=== PATIENT | female | born 2000 | race African-American/Black ===

== ENCOUNTER 2023-10-20 07:18 | Day surgery (SDC) | payer MEDICAID, SELFPAY ==
[2023-10-20] VITALS (14 sets, daily range): BP systolic 97–128; BP diastolic 37–71; PULSE 55–86; RESP 12–18; TEMP 36.2–36.8; O2SAT 97–99; BMI 24.6
--- NOTE | ~2023-10-20 | CT_ITS ---
EXAMINATION: CT ABDOMEN AND PELVIS WITHOUT CONTRAST CLINICAL INFORMATION: Right flank pain. Evaluate for a stone. COMPARISON: None available. TECHNIQUE: Multidetector volumetric imaging was performed from the superior aspect of the liver through the pubic symphysis. Sagittal and coronal reformatted images were obtained on the technologist's workstation. This CT examination was performed using dose optimization techniques as appropriate, variously including the following: *Automated exposure control *Adjustment of mA and/or kV according to patient size (this includes techniques or standardized protocols for targeted exams where dose is matched to indication/reason for exam; i.e. extremities or head) *Use of iterative reconstruction technique DLP: 331 mGy-cm FINDINGS: LUNG BASES: The visualized lung bases are unremarkable. LIVER, GALLBLADDER, AND BILIARY TREE: The liver is normal in size, shape, and attenuation. No focal hepatic lesion or biliary ductal dilatation is present. The gallbladder is unremarkable with no evidence of radiopaque gallstones, gallbladder wall thickening, or obvious pericholecystic inflammatory changes. PANCREAS: Unremarkable. SPLEEN: Unremarkable. ADRENAL GLANDS: Unremarkable. KIDNEYS AND URETERS: The kidneys are normal in size, shape, and attenuation. Right mid pole 0.2 cm stone located approximately 6.9 cm from the right posterior axillary line. Minimally prominent right ureter which could represent minimal hydroureter. No significant hydronephrosis. No ureteral stone. Left mid pole renal stone measuring 0.1 cm and located approximately 5.1 cm from the posterior axillary line. No additional renal or ureteral stone. No significant left-sided hydronephrosis or hydroureter. BLADDER: Unremarkable. GASTROINTESTINAL TRACT: No small or large bowel obstruction. Mild stool burden. No bowel wall thickening or inflammatory change. There is hyperdensity in the region of the appendiceal base measuring up to 1.0 cm which could represent an appendicolith. Along the inferior margin of the cecum in the expected region of the appendix, there is a lobulated, heterogeneous focus measuring up to 3.2 x 5.0 x 4.7 cm (AP by ML by CC) with a density of 40 Hounsfield units. Findings are concerning for acute appendicitis and associated phlegmonous change. No discrete appendiceal lumen identified. No peripherally enhancing fluid collection or abscess formation. PERITONEAL CAVITY: Small amount of pelvic free fluid. No organized fluid collection or abscess formation. No large soft tissue mass. ABDOMINAL WALL: No significant hernia is appreciated. LYMPH NODES: No significant lymphadenopathy. VASCULAR: Unremarkable. PELVIC VISCERA: The uterus and adnexa are unremarkable. OSSEOUS STRUCTURES: Focal sclerosis adjacent to the left sacroiliac joint and more mildly adjacent to the right sacroiliac joint which may represent sequela of degenerative or chronic inflammatory arthropathy. No additional osseous abnormality. CT/CT abdomen pelvis wo IV con IMPRESSION: 1. Findings concerning for acute appendicitis with a probable appendicolith at the base of the appendix and phlegmonous change along the inferior margin of the cecum. No discrete appendiceal lumen identified. No peripherally enhancing fluid collection or abscess formation. 2. Small amount of pelvic free fluid. No organized fluid collection or abscess formation. 3. Bilateral renal stones measuring 0.2 cm on the right and 0.1 cm on the left. Minimal prominence of the right ureter without significant hydronephrosis or hydroureter. No ureteral stone. No urinary bladder stone or inflammatory change. 4. Focal sclerosis adjacent to the left sacroiliac joint and more mild adjacent to the right sacroiliac joint which may represent sequela of degenerative or chronic inflammatory arthropathy. Fleischner guidelines were followed.
--- NOTE | 2023-10-20 09:07 | ED.ABDPAIN ---
HPI - Abdominal Pain General Chief Complaint: Abdominal Pain Stated Complaint: kidney stones? Time Seen by Provider: 10/20/23 08:45 Source: patient Mode of arrival: ambulatory Limitations: no limitations History of Present Illness HPI narrative: 23 year old female with pmhx significant for nephrolithiasis presents to the ED today for evaluation of right flank pain beginning last night. She was recently seen at an ED in [place] on 10/15, diagnosed with left UVJ stone which she reports passing. Symptoms resolved until yesterday. She now reports the same discomfort to her right back with radiation to her right abdomen and groin. Denies fever/chills, nausea or vomiting, dysuria, hematuria, vaginal discharge. Endorses regular caffeine consumpion. Denies chance of . LMP 20 days ago. Reports 10 mo ago. No other abdominal surgeries. Related Data Allergies Allergy/AdvReac Type Severity Reaction Status Date / Time No Known Allergies Allergy Verified 10/20/23 10:48 Review of Systems Review of Systems Constitutional: No fever, chills, fatigue, night sweats, weight changes ENT/Mouth: No ear pain, hearing loss, nasal congestion, sinus pain, rhinorrhea, sore throat Eyes: No eye pain, swelling, redness, vision changes, discharge Cardio: No chest pain, palpitations, FORBES, orthopnea, peripheral edema Pulm: No SOB, cough, sputum, wheezing, dyspnea, hemoptysis GI: No nausea, vomiting, hematemesis, +abdominal pain, No diarrhea, constipation, hematochezia, melena : No irregular bleeding, dysuria, frequency, urgency, hesitancy, hematuria, flank pain, urinary flow changes, urinary incontinence or retention MSK: No back pain, neck pain, joint pain, myalgias Skin: No lesions, rashes Neuro: No weakness, numbness, paresthesias, LOC, dizziness, headache All other systems reviewed and are negative. [facility] Past Medical History Attestation statement: The following information was validated with the patient. Source: old records reviewed and nursing notes reviewed Social History Social History Advance Directives: No Advance Directives Information Provided: Yes Physical Exam ED Vital Signs: Vital Signs - 24 hr 10/20/23 07:21 10/20/23 09:48 10/20/23 11:33 Temperature 97.3 F 98.2 F 97.7 F Pulse Rate 86 55 63 Respiratory Rate 18 12 18 Blood Pressure 118/62 99/50 L 97/51 L Pulse Oximetry 98 99 99 Oxygen Delivery Method Room Air Room Air Room Air BMI result Body Mass Index 24.6 Vital signs wnl. Const General: cooperative, healthy appearing, comfortable, no acute distress, alert and awake Orientation/consciousness: patient oriented x3 Limitations: no limitations Eyes General: appearance normal, both eyes and all related structures Conjunctivae: conjunctivae normal Sclerae: sclerae normal Pupils: Equal, round and reactive pupils present Neck Neck: Yes normal visual inspection and Yes no lymphadenopathy Resp Effort & Inspection: normal respiratory effort and able to speak in complete sentences Auscultation: clear to auscultation bilaterally Cardio Jugular venous distension: no JVD Rate: regular rate Rhythm: regular rhythm Peripheral pulses: radial pulses present GI Other: + abdomen soft, nondistended, tender to palpation of the right lower quadrant with guarding, no rebound tenderness, normoactive bowel sounds x4. + right CVAT Inspection: Yes normal to inspection Palpation (GI): no hepatosplenomegaly Skin General skin exam: no rashes or lesions noted Neuro General: patient oriented x3, gait normal and moves all extremities Cranial nerves: Yes Equal, round and reactive pupils present Extrem General: Yes normal to inspection Course Course Course Narrative: 300-- CBC without leukocytosis. Hemoglobin of 10.6 and hematocrit of 30.9 she does not complain of vaginal bleeding, rectal bleeding or hematemesis. No acute electrolyte abnormalities requiring intervention. Urine is negative for infection or blood > acute renal stone less likely. >> CT abdomen and pelvis concerning for acute appendicitis with appenicolith and phlegmon. Will reach out to General surgery to discuss intervention. [id number]-- Discussed case and workup results with Dr. Schmidt who will take patient to OR this afternooon. Discussed work up results and plan with patient who verbalizes understanding and is in agreement. > will start patient on zosyn Medical Decision Making Medical Decision Making MDM Narrative: 23 year old female with pmhx significant for nephrolithiasis presents to the ED today for evaluation of right flank pain beginning last night. Vital signs WNL. Patient is nontoxic appearing and in no acute distress. On exam, abdomen is soft, nondistended, tender to palpation of the right lower quadrant with guarding, no rebound tenderness. Normoactive bowel sounds x4. Positive right CVAT. Bladder not palpable. Clinical concern for urinary tract infection, nephrolithiasis, hydronephrosis. Unlikely STD, PID, pyelonephritis, appendicitis, SBO, ischemic bowel, diverticulosis, diverticulitis, ovarian torsion, ovarian cyst/rupture, IUP, ectopic Plan for labs, UA, CT abdomen/pelvis, fluids, and re-evaluation. Differential Diagnosis Differential Diagnoses: The differential diagnosis associated with the presentation includes as above. Admission/Observation Consideration of admission/observation: Escalation of care including admission/observation considered In this patient with known renal stones and acute onset right flank pain, admission was considered. Consult Healthcare Provider Management of the patient was discussed with: Sat Instructor (General surgeon, Dr. Schmidt) Lab Data MDM Lab Attestation statement: I reviewed the patient's lab results. as above. 10/20/23 09:40 10/20/23 09:40 Labs: Lab Results 10/20/23 10/20/23 Range/Units 09:40 13:43 WBC 7.7 (4.8-10.8) X10*3/uL RBC 3.38 L (4.20-5.50) X10*6/uL Hgb 10.6 L (12.0-16.0) g/dl Hct 30.9 L (37.0-47.0) % MCV 91.4 (80.0-98.0) fL MCH 31.4 (27.0-33.0) pg MCHC 34.3 (31.0-35.0) g/dl RDW 12.9 (11.0-16.0) % Plt Count 288 (160-400) X10*3/uL MPV 10.4 (9.4-12.3) fL Immature Gran % (Auto) 0.1 (0.0-0.4) % Neut % (Auto) 53.2 (45-73) % Lymph % (Auto) 36.7 (20-40) % [place] % (Auto) 7.4 (2-11) % Eos % (Auto) 2.2 (0-4) % Baso % (Auto) 0.4 (0-2) % Lymph # (Auto) 2.8 (1.2-4.9) X10*3/uL [place] # (Auto) 0.6 (0.1-1.2) X10*3/uL Eos # (Auto) 0.2 (0.0-0.4) X10*3/uL Baso # (Auto) 0.0 (0.0-0.2) X10*3/uL Abs Immat Gran (auto) 0.01 (0.00-0.03) X10*3/uL Absolute Neuts (auto) 4.1 (2.0-8.3) x10*3/uL Absolute Nucleated RBC 0.000 (0.0-0.012) X10*3/uL Nucleated RBC % (auto) 0.0 (0.0-0.2) /100WBC Sodium 139 (135-145) mmol/L Potassium 3.8 (3.3-5.1) mmol/L Chloride 107 (96-108) mmol/L Carbon Dioxide 25 (22-29) mmol/L Anion Gap 11 L (12-20) BUN 8 L (9-16) mg/dL Creatinine 0.77 (0.5-1.4) mg/dL Estim Creat Clear Calc 99.4 Estimated GFR > 60 Random Glucose 89 (60-115) mg/dL Lactic Acid 0.7 (0.5-2.0) mmol/L Calcium 8.7 (8.4-10.2) mg/dL Magnesium 2.0 (1.6-2.6) mg/dL Lipase 25 (8-78) U/L Urine Color Yellow Urine Appearance Clear Urine pH 6.0 (5.0-9.0) Ur Specific [place] 1.010 (1.005-1.025) Urine Protein Negative (Neg-Trace) mg/dL Urine Glucose (UA) Negative (Negative) mg/dL Urine Ketones Negative (Negative) mg/dL Urine Blood Negative (Negative) Urine Nitrite Negative (Negative) Ur Leukocyte Esterase Negative (Negative) Urine Test NEGATIVE (NEGATIVE) Independent Interpretation I performed an independent interpretation of an: CT Scan Interpretation: I personally interpreted ct abd/pelvis and agree with radiologist's interpretation. Radiology Impression Discussion of test interpretation with radiology: I have reviewed the radiologist's reading. Radiologist Impression: CT abdomen pelvis wo IV con IMPRESSION: 1. Findings concerning for acute appendicitis with a probable appendicolith at the base of the appendix and phlegmonous change along the inferior margin of the cecum. No discrete appendiceal lumen identified. No peripherally enhancing fluid collection or abscess formation. 2. Small amount of pelvic free fluid. No organized fluid collection or abscess formation. 3. Bilateral renal stones measuring 0.2 cm on the right and 0.1 cm on the left. Minimal prominence of the right ureter without significant hydronephrosis or hydroureter. No ureteral stone. No urinary bladder stone or inflammatory change. 4. Focal sclerosis adjacent to the left sacroiliac joint and more mild adjacent to the right sacroiliac joint which may represent sequela of degenerative or chronic inflammatory arthropathy. Fleischner guidelines were followed. External Record Review External record reviewed: Inpatient record Prescription Management I considered prescription management with: Pain Medication and Antibiotic Social Determinants Patient?s care significantly limited by Social Determinants of Health including: Other Social Determinant of Health Medications Administered Discontinued Medications Generic Name Dose Route Start Last Admin Trade Name Freq PRN Reason Stop Dose Admin Acetaminophen 650 mg 10/20/23 09:18 10/20/23 09:25 Acetaminophen 325 Mg Tablet PO 10/20/23 09:19 650 mg ONCE ONE Administration Sodium Chloride 1,000 mls @ 999 mls/hr 10/20/23 09:15 10/20/23 10:55 Ns IV 10/20/23 10:15 Infused .Q1H1M JONNY Infusion Piperacillin Sod/Tazobactam 50 mls @ 100 mls/hr 10/20/23 13:31 10/20/23 15:07 Sod 3.375 gm/ Sodium Chloride IV 10/20/23 14:00 Infused ONCE ONE Infusion Critical Care Time Critical Care Time Critical Care Time: Yes Total Critical Care Time: 60 Attestation: Critical care time in the amount of 60 minutes has been provided to the patient in terms of direct patient care, frequent reevaluation, consultation with General surgery, review and interpretation of medical data and results, and management of potentially life-threatening conditions. This is all outside of any medical procedures. Discharge Plan Discharge Clinical Impression: Acute appendicitis Patient Disposition: Still a Patient Referrals: Yoan Schmidt MD [Physician] - Physician,Betsy J [Primary Care Provider] -
[2023-10-20] MEDS: Acetaminophen 325 MG TABLET 650 MG PO (09:25)
[2023-10-20] MEDS: 0.9 % Sodium Chloride 1,000 ML 999 ML IV (09:42)
[2023-10-20 09:54] LABS: MANUAL DIFF FLAG NO
[2023-10-20 09:55] LABS: Basophils Percent Auto 0.4 % (0-2); Eosinophils Absolute Auto 0.2 X10*3/uL (0.0-0.4); Eosinophils Percent Auto 2.2 % (0-4); Hematocrit 30.9 % (37.0-47.0); Hemoglobin 10.6 g/dl (12.0-16.0); Imm Gran Abs Auto 0.01 X10*3/uL (0.00-0.03); Imm Gran Pct Auto 0.1 % (0.0-0.4); Lymphocytes Absolute Auto 2.8 X10*3/uL (1.2-4.9); Lymphocytes Percent Auto 36.7 % (20-40); Mean Corpuscular HGB Conc 34.3 g/dl (31.0-35.0); Mean Corpuscular Hemoglobin 31.4 pg (27.0-33.0); Mean Corpuscular Volume 91.4 fL (80.0-98.0); Mean Platelet Volume 10.4 fL (9.4-12.3); Monocytes Absolute Auto 0.6 X10*3/uL (0.1-1.2); Monocytes Percent Auto 7.4 % (2-11); Neutrophils Absolute Auto 4.1 x10*3/uL (2.0-8.3); Neutrophils Percent Auto 53.2 % (45-73); Platelet Count 288 X10*3/uL (160-400); Red Blood Count 3.38 X10*6/uL (4.20-5.50); Red Cell Distribution Width 12.9 % (11.0-16.0); White Blood Count 7.7 X10*3/uL (4.8-10.8)
[2023-10-20 09:58] LABS: Appearance Urine Clear; Color Urine Yellow; Glucose Urine UA Negative (Negative); Leukocyte Esterase Urine Negative (Negative); Nitrite Urine Negative (Negative); Urine Blood Negative (Negative); Urine Ketones Negative (Negative); Urine Protein Negative (Neg-Trace)
[2023-10-20 10:05] LABS: UPreg QC Valid YES; Urine Pregnancy NEGATIVE (NEGATIVE)
[2023-10-20 10:12] LABS: Anion Gap 11 (12-20); Blood Urea Nitrogen 8 mg/dL (9-16); Calcium 8.7 mg/dL (8.4-10.2); Carbon Dioxide 25 mmol/L (22-29); Chloride 107 mmol/L (96-108); Creatinine Clr Calc Pharmacy 99.4; Estimated Glomerular Filt Rate > 60; Glucose Random 89 mg/dL (60-115); Lipase 25 U/L (8-78); Potassium 3.8 mmol/L (3.3-5.1); Sodium 139 mmol/L (135-145)
--- NOTE | 2023-10-20 11:35 | PC.NURSE ---
20g iv inserted rac, pt tolerated well. po med and iv fluid given as documented.
[2023-10-20 14:00] LABS: Lactic Acid 0.7 mmol/L (0.5-2.0)
[2023-10-20] MEDS: Piperacillin Sodium/Tazobactam 3.375 GM in 0.9 % Sodium Chloride 50 ML IV (14:09)
--- NOTE | 2023-10-20 15:00 | PC.NURSE ---
LATE ENTRY: PT TAKEN TO OR DR. PATEL ASSISTED BY CLINICAL STAFF PHARMACIST. REPORT GIVEN TO OR NURSE.
--- NOTE | 2023-10-20 15:12 | P.HPGS_ITS ---
History of Present Illness History of Present Illness Date of Service: 10/20/23 Chief complaint: kidney stones? Narrative: Steven Del Castillo is a 23 year old female with a recent history of left-sided kidney stones are now presents with approximate 1 day history of progressively worsening right-sided abdominal pain. Because of progression of symptoms, she presents for further evaluation. She denies any other GI issues or complaints. She has not had any sick contacts. She does not recall any unusual diet. As noted, patient was in [place] recently and had passed a left kidney stone. Chart was reviewed and patient evaluated. Past surgical history noteworthy for section approximately 8 months ago. [facility] Social History Social History Advance Directives: No Advance Directives Information Provided: Yes Meds Allergies Allergy/AdvReac Type Severity Reaction Status Date / Time No Known Allergies Allergy Verified 10/20/23 10:48 Physical Exam Vital Signs: Vital Signs: Last Vital Signs Temp 97.7 F 10/20/23 11:33 Pulse 63 10/20/23 11:33 Resp 18 10/20/23 11:33 BP 97/51 L 10/20/23 11:33 Pulse Ox 99 10/20/23 11:33 O2 Del Method Room Air 10/20/23 11:33 BMI result Body Mass Index 24.6 Chest: Other: Chest breath sounds bilaterally, HS 1 in 2 GI: Other: Abdomen mildly corpulent, marked right lower quadrant localized rebound tenderness. Remainder of abdomen benign Results Results Labs: Short CBC 10/20/23 Range/Units 09:40 WBC 7.7 (4.8-10.8) X10*3/uL Hgb 10.6 L (12.0-16.0) g/dl Hct 30.9 L (37.0-47.0) % Plt Count 288 (160-400) X10*3/uL BMP 10/20/23 09:40 Sodium 139 Potassium 3.8 Chloride 107 Carbon Dioxide 25 BUN 8 L Creatinine 0.77 Calcium 8.7 Urine 10/20/23 Range/Units 09:40 Urine Color Yellow Urine Appearance Clear Urine pH 6.0 (5.0-9.0) Ur Specific [place] 1.010 (1.005-1.025) Urine Protein Negative (Neg-Trace) mg/dL Urine Glucose (UA) Negative (Negative) mg/dL Urine Test NEGATIVE (NEGATIVE) Assessment and Plan (1) Acute appendicitis: Status: Acute Plan Risks, benefits, and alternatives laparoscopic possible open appendectomy were reviewed with the patient and included but not limited to bleeding, infection, numbness, pain, scarring, bowel or bladder injury or leak and the patient wished to proceed. All questions answered. Arrangements were made for this for this afternoon. Quality Stroke Does the patient have a stroke diagnosis?: No VTE Prior VTE?: No VTE Risk Level:: Surgical - low VTE Device Contraindication: Treatment Not Indicated VTE Drug Contraindication: Treatment Not Indicated Procedures Date of Service Date of Service: 10/20/23
[2023-10-20] MEDS: fentaNYL citrate/PF 100 MCG/2 ML VIAL 25 MCG IVPUSH ×3 (16:55→17:15)
[2023-10-20] MEDS: oxyCODONE HCl Immed Release 5 MG TABLET PO (16:55)
[2023-10-20] MEDS: Acetaminophen 1,000 MG/100 ML PIGGYBACK 400 MG IV (16:55)
--- NOTE | 2023-10-20 17:00 | P.OP_ITS ---
Operative Note Operative Note Date of Service: 10/20/23 Narrative: Preoperative diagnosis: [] early acute appendicitis Postop diagnosis: [] Same Procedure [] laparoscopic appendectomy Surgeon: [] Brayan [employer] Structural Designer: [] Type of Anesthesia: [] General Indication for surgery: [] Edematous injected appendix. No other gross intra- abdominal pathology demonstrated. No evidence of perforation. Patient is status post relatively recent section. Findings: [] Patient was brought to the operating room, placed on operative table in supine position, after an adequate level of general anesthesia was induced, the patient's abdomen was prepped and draped in usual sterile fashion. Using a supraumbilical curvilinear incision, Sorensen technique was used to insufflate the abdominal cavity to 15 mm of CO2. Lower midline suprapubic ports were placed under direct laparoscopic view, the patient placed in Trendelenburg position, and tilted to the left. Findings were as noted above. Terminal ileum was within normal limits. Appendix was grasped and brought onto the field. Its mesentery sequentially taken down with double firing of ligature device. Appendix was then transected at the cecal base using endoscopic MUKUND stapler. Specimen was placed in an Endo- Catch bag, a retrieved through the umbilical port. The abdominal cavity was copiously irrigated, and secured hemostasis. All ports were removed under direct laparoscopic view. Wounds were closed in the following manner; umbilical wound is fascia reapproximated using interrupted 0 Vicryl sutures. Skin wounds were closed using subcuticular 4-0 Vicryl sutures followed by Steri-Strips and sterile dressings. Wounds were infiltrated 0.5% Marcaine at completion. Sponge, needle, and instrument counts reported correct. Patient tolerated the procedure well and emerged from anesthesia stable condition. EBL minimal
--- NOTE | 2023-10-20 18:38 | PHA.MEDREC ---
Addendum entered by Nolan Wiggins 10/21/23 09:17: Pt departed. Original Note: Pharmacy Consult ? Medication Reconciliation Pharmacy has completed the medication reconciliation. Unable to perform med rec as patient in surgery. Will follow up tomorrow AM.
--- NOTE | 2023-10-22 11:41 | HO.POSTANES ---
Post Anesthesia Evaluation Post Anesthesia Evaluation Date of Service: 11/20/23 Anesthesia: General Endotracheal-GETA Mental Status: Awake Pain Control: Satisfactory Nausea/Vomiting: None Hydration: Adequate Anesthesia-Related Issues: No Anes. Related Issues
== END 2023-10-21 08:27 | disposition admitted as inpatient to this hospital (09) ==
LOC: HO.ED 10-21 07:30 → HO.SSS 10-21 08:27
PROVIDERS: Surgery; Emergency Provider Emergency Medicine; Visit Provider Physician Assistant Medical
PROC: 0DTJ4ZZ Resection of Appendix, Percutaneous Endoscopic Approach (ICD-10-PCS; CPT 44970; principal; 2023-10-20 15:00)
DX: K35.80 Unspecified acute appendicitis (principal)
CPT/HCPCS: 44970; 36415; 74176; 80048; 81003; 81025; 83605; 83690; 83735; 85025; 87040; 88304; 96361; 96365; 99284; 99285; J0131; J1100; J2250; J2405; J2543; J2704; J2795; J3010

== ENCOUNTER → 2023-10-20 08:56 | Outpatient (BNV) | payer MEDICAID, SELFPAY | PROVIDERS: Emergency Provider Emergency Medicine; Visit Provider Surgery | DX: K35.80 Unspecified acute appendicitis (principal) | CPT/HCPCS: 44970; 99284 ==

== ENCOUNTER 2023-10-24 14:05 | Outpatient (AMB) | payer MEDICAID, SELFPAY ==
--- NOTE | 2023-10-24 14:29 | MHC.OFFVIS ---
Intake Vital Signs 10/24/23 14:30 Weight 134 lb BP 110/53 L Blood Pressure Location Rt brachial Position Sitting Pulse 62 Intake Visit Reasons: s/p laparoscopic appendectomy Intake Note: Patient here s/p lap appendectomy on 10-20-23. Reports incision healing well. Denies bleeding, itch. Patient c/o: incision on lower abd feels tender to touch. Fiscal Agent Required: No Accompanied by: Self / Same As Patient Allergies No Known Allergies Allergy (Verified 10/24/23 14:31) HPI HPI Comments History of Present Illness Details Status post appendectomy. Mild incisional discomfort but otherwise doing well. Tolerating her diet. Having normal bowel habits. Increasing her activity level. Pathology still pending Physical Exam Vital Signs: Last Vital Signs Pulse 62 10/24/23 14:30 BP 110/53 L 10/24/23 14:30 GI Other: Abdomen soft. All wounds clean dry and intact. Assessment & Plan Assessment & Plan (1) Status post appendectomy, follow-up exam: Code(s): Z09 - Encounter for follow-up examination after completed treatment for conditions other than malignant neoplasm Plan Patient has been given local instructions, and will follow-up p.r.n.. Should her bowel of allergy have something of interest, she will be contacted . Otherwise she will follow-up p.r.n.. Coding Level of Care Code Global (84899) Diagnoses Status post appendectomy, follow-up exam Z09
[2023-10-24 14:30] VITALS: BP 110/53; PULSE 62
== END 2023-10-24 14:39 | disposition home or self-care (01) ==
PROVIDERS: Visit Provider Surgery
DX: Z09 Encounter for follow-up examination after completed treatment for conditions other than malignant neoplasm (principal)
CPT/HCPCS: 99024

== ENCOUNTER → 2023-10-24 14:05 | Outpatient (BNVA) | payer MEDICAID, SELFPAY | PROVIDERS: Visit Provider Surgery | DX: Z09 Encounter for follow-up examination after completed treatment for conditions other than malignant neoplasm (principal); Z98.890 Other specified postprocedural states | CPT/HCPCS: 99212 ==

== ENCOUNTER 2023-10-31 16:39 | Emergency (ER) | payer OTHER, SELFPAY ==
[2023-10-31 16:53] VITALS: BP 131/72; PULSE 83; RESP 18; TEMP 37.1; O2SAT 98; BMI 23.9
--- NOTE | 2023-10-31 16:54 | ED.URI ---
HPI - URI/Sore Throat General Chief Complaint: Fever Stated Complaint: flu like symptoms Time Seen by Provider: 10/31/23 17:47 Source: patient, RN notes reviewed and old records reviewed Mode of arrival: ambulatory History of Present Illness HPI Narrative: 23-year-old female with no significant past medical history presenting to the ED complaining of rhinorrhea, congestion, chills, dry cough, subjective fever x few days. Admits to sick contacts. Denies chest pain/shortness of breath, sore throat, recent travel Related Data Home Medications Medication Instructions Recorded Confirmed No Known Home Meds 10/24/23 10/24/23 Allergies Allergy/AdvReac Type Severity Reaction Status Date / Time No Known Allergies Allergy Verified 10/24/23 14:31 Review of Systems Review of Systems: Constitutional: + Fever, No Chills ENT/Mouth: No Ear Pain, + Nasal Congestion, No Sinus Pain, No Hoarseness, + sore throat, + Rhinorrhea, No Swallowing Difficulty Cardiovascular: No Chest Pain, No SOB Respiratory: + Cough, No Sputum, No Wheezing Gastrointestinal: + Nausea, No Vomiting, + Diarrhea, No Constipation, No Abdominal pain Musculoskeletal: No joint pain, No Myalgias, No Joint Swelling Skin: No Skin Lesions, No rash Neuro: No Weakness Yes all other systems are reviewed and are negative Constitutional: Constitutional: Reports as per [facility] Past Medical History Attestation statement: The following information was validated with the patient. Source: old records reviewed Onset Date is defined in the Problem List Problems that require an onset date and time if occurred within 24 hrs of arrival to the ED Aortic Dissection and Rupture; Neurologic impairment; Cardiopulmonary Arrest; Endotracheal Intubation; Insertion or Replacement of Mechanical Circulatory Assist Device Social History Social History Advance Directives: No Advance Directives Information Provided: No Physical Exam Vital Signs: Vital Signs: Last Vital Signs Temp 98.8 F 10/31/23 16:53 Pulse 83 10/31/23 16:53 Resp 18 10/31/23 16:53 BP 131/72 10/31/23 16:53 Pulse Ox 98 10/31/23 16:53 O2 Del Method Room Air 10/31/23 16:53 BMI result Body Mass Index 23.9 Const: General: cooperative, healthy appearing and no acute distress Orientation/consciousness: patient oriented x3 Limitations: no limitations HEENT: Head: Yes normal to inspection and Yes atraumatic Ears: hearing grossly normal bilaterally General nose exam: Normal external nose present Face and sinus: Yes normal facial exam Eyes: General: appearance normal, both eyes and all related structures EOM: EOMs intact bilaterally Neck: Neck: Yes normal visual inspection and Yes no meningeal signs Resp: Effort & Inspection: normal respiratory effort and no respiratory distress Auscultation: clear to auscultation bilaterally, no crackles, no rales, no rhonchi and no wheezes Cardio: Rate: regular rate Heart sounds: S1 normal heart sound present and S2 normal heart sound present Skin: Rashes: no rashes Wounds: no wounds Neuro: General: patient oriented x3, tone normal and no meningeal signs Cranial nerves: Yes CN's II-XII intact bilaterally Gait exam (Neuro): Normal gait present Extrem: General: Yes normal to inspection Course Course Course Narrative: RME: 23 year-old F w/no sig PMHx presenting to the ED c/o congestion, chills, cough, & fever x few days. denies sore throat, SOB Viral testing ordered Full HPI, ROS and PE to be performed by primary ED provider. -influenza B positive. Offered Tamiflu and discussed risk versus benefit > patient deferred Results discussed with patient including worrisome signs and symptoms and strict return precautions, and when to return to the emergency department. They verbalized understanding and feel safe for discharge at this time. Medical Decision Making Medical Decision Making [facility] Narrative: 23-year-old female with no significant past medical history presenting to the ED complaining of rhinorrhea, congestion, chills, dry cough, subjective fever x few days. On exam vital signs stable, NAD, nontoxic appearing, lungs CTA, exam otherwise nonfocal. Concern for viral illness. Lower suspicion for ACS, pneumonia, bronchitis Plan: Viral testing Please refer to course for remaining clinical decision making, interpretation of labs/imaging results, and discussions with consultants and/or family members. Differential Diagnosis Differential Diagnoses: The differential diagnosis associated with the presentation includes As above Lab Data [facility] Lab Attestation statement: I reviewed the patient's lab results. Labs: Lab Results 10/31/23 Range/Units 16:59 COVID-19 (JAMIE) Negative (Negative) COVID-19 Clin Com See Note Influenza Type A (NAHID) Negative (Negative) Influenza Type B (NAHID) Positive A (Negative) Influenza A & B Note See Note External Record Review External record reviewed: Inpatient record, Office record, Outpatient record, Prior outpatient labs, Prior outpatient radiology, Primary care record and Outside ED record Tests considered The following testing was considered but not selected: As above Prescription Management I considered prescription management with: Pain Medication, Antiviral and Antibiotic Discharge Plan Discharge Clinical Impression: Influenza Patient Disposition: Home, Self-Care Instructions: Influenza (DC) Additional Instructions: You have the flu No antibiotics are indicated at this time Make sure you are staying hydrated. Drink plenty of fluids. Rest Alternate Tylenol and Motrin at home as needed for body aches and fever Follow-up with your doctor. If symptoms persist or worsen return to the emergency department *If you are a child & not tolerating liquid or urinating for more than 6 hours, or fevers are uncontrolled with medications at home, return to the emergency department* Prescriptions: No Action No Known Home Meds Referrals: Physician,Unknown J [Primary Care Provider] - 3 days Stand Alone Forms: Work/School Release
[2023-10-31 17:21] LABS: COVID-19 Test Negative (Negative); IDNOW Serial# 08D9AD1C
[2023-10-31 17:23] LABS: IDNOW Serial# 6674DD1D; Influenza A Negative (Negative); Influenza B2 Positive (Negative)
== END 2023-10-31 17:58 | disposition home or self-care (01) ==
PROVIDERS: Physician Assistant; Emergency Provider Student in an Organized Health Care Education/Training Program
DX: J10.1 Influenza due to other identified influenza virus with other respiratory manifestations (principal); Z11.52 Encounter for screening for COVID-19
CPT/HCPCS: 87502; 87635; 99282; 99283

== ENCOUNTER 2024-01-18 17:57 | Emergency (ER) | payer OTHER, SELFPAY ==
[2024-01-18 18:14] VITALS: BP 122/66; PULSE 106; RESP 20; TEMP 36.6; O2SAT 99; BMI 24.7
--- NOTE | 2024-01-18 18:14 | ED.NAVMDI ---
HPI - Nausea/Vomiting/Diarrhea General Chief complaint: Nausea/Vomiting/Diarrhea Stated complaint: Diarrhea Time Seen by Provider: 01/18/24 20:01 Source: patient Mode of arrival: ambulatory Limitations: no limitations History of Present Illness HPI Narrative: 23-year-old female with no significant past medical history who presents emergency department for evaluation of nausea, vomiting, diarrhea and fatigue. Patient states that her symptoms started last night at around 17:00 hours. She states that she had some mild abdominal discomfort, felt very fatigued and then she developed persistent vomiting all night with 2 episodes of loose diarrheal stool. She denied fever, chills, rhinorrhea, sore throat, cough, chest pain, shortness of breath. Patient is concerned that she may have food poisoning secondary to a buffalo chicken cream cheese dip or that she may have caught something from her work-the patient works as a INFRASTRUCTURE ARCHITECT. The patient's and 1-year-old son also have similar symptoms and her here in the emergency department as patient's as well. Related Data Previous Rx's Medication Instructions Recorded acetaminophen 500 mg tablet 1,000 mg (2 x 500 mg) PO Q6H PRN 01/18/24 (Tylenol Extra Strength) fever or pain #20 tabs ibuprofen 400 mg tablet 400 mg PO TID PRN fever or pain 01/18/24 #30 tabs loperamide 2 mg tablet (Imodium 2 mg PO Q4H PRN loose stool #20 01/18/24 A-D) tabs ondansetron 4 mg disintegrating 4 mg PO Q6-8H PRN nausea and 01/18/24 tablet vomiting #14 tabs Allergies Allergy/AdvReac Type Severity Reaction Status Date / Time No Known Allergies Allergy Verified 01/18/24 18:16 Review of Systems Review of Systems: Yes all other systems are reviewed and are negative [facility] Past Medical History [facility] Narrative: Social history: She denies tobacco use she occasionally drinks alcohol she denies drug use Social History Social History Advance Directives: No Advance Directives Information Provided: No Physical Exam Vital Signs: Vital Signs: Last Vital Signs Temp 97.9 F 01/18/24 18:14 Pulse 106 H 01/18/24 18:14 Resp 20 01/18/24 18:14 BP 122/66 01/18/24 18:14 Pulse Ox 99 01/18/24 18:14 O2 Del Method Room Air 01/18/24 18:14 BMI result Body Mass Index 24.7 Vital signs were normal except for an elevated heart rate of 106 Exam: General: Awake, alert in no distress Head: Normocephalic, atraumatic EENT: PERRL, Lids normal, sclera normal, conjunctiva normal, nose normal , ears normal, throat without erythema or exudates Neck: Supple, no adenopathy Lung: breath sounds symmetric, no wheezing, rales or rhonchi Chest: symmetric movement, nontender Heart: regular rate and rhythm, normal S1, S2 no murmurs or rubs Abdomen: soft, non-tender, nondistended, normal bowel sounds Back: no vertebral tenderness, no CVAT Extremities: no deformities, moves all extremities symmetrically Neuro: Awake, alert, oriented, normal speech, cranial nerves intact, moves all extremities symmetrically Psych: Pleasant, cooperative Course Course Course Narrative: This is an RME: Additional HPI, ROS, PE not included below will be deferred to primary provider. Patient is a 23-year-old female who presents emergency department for evaluation of fatigue, nausea, vomiting, diarrhea. Symptoms develop soon after she ate buffalo chicken dip which she subsequently realized that there was mold in the blue cheese used in the recipe. Boyfriend is ill with similar symptoms. Additionally she reports that she took a test yesterday, there appeared to be a faded positive line, expressing concern for possible . denies urinary sx. 19:20 - child now ill will add viral panel Medications Administered Discontinued Medications Generic Name Dose Route Start Last Admin Trade Name Nikoq PRN Reason Stop Dose Admin Ondansetron HCl 4 mg 01/18/24 18:17 01/18/24 20:23 Ondansetron Odt 4 Mg Tab.Rapdis TRANSLINGU 01/18/24 18:18 4 mg ONCE ONE Administration Medical Decision Making Medical Decision Making [facility] Narrative: 23-year-old female with no significant past medical history who presents emergency department for evaluation of nausea, vomiting, diarrhea and fatigue x1 day. Patient had multiple episodes of vomiting with 2 episodes of loose diarrheal stool. Patient is concerned that she may have a viral infection that she called at work (she works as a INFRASTRUCTURE ARCHITECT) or she may have food poisoning secondary to a moldy [place] chicken she is sauce. Patient's and 1-year-old son here in the emergency department with similar symptoms. Vital signs did reveal an elevated heart rate. Examination was unremarkable Differential diagnosis: ?Includes but is not limited to viral syndrome, gastroenteritis, food poisoning, COVID-19, influenza, RSV, , urinary tract infection Following evaluation was ordered: COVID-19, RSV, influenza, urinalysis, test Patient was initially treated with the following: Zofran 4 mg ODT Course: 20:59 My interpretation patient's laboratory evaluation is as follows: Urinalysis positive for blood negative for leukocyte esterase and nitrates microscopic revealed greater than 20 WBCs and 2+ bacteria. RSV, influenza and COVID-19 were negative Given that the patient's in 1-year-old son have similar symptoms I do not think that the patient has food poisoning but most likely has a viral syndrome. Patient's nausea did improve with Zofran ODT. She was given prescriptions for Tylenol and ibuprofen for pain and fever. She was also given prescription for Imodium for diarrhea and Zofran ODT for nausea and vomiting Patient was given a work note, printed and verbal instructions and discharged home Admission/Observation Consideration of admission/observation: Escalation of care including admission/observation considered Lab Data [facility] Lab Attestation statement: I reviewed the patient's lab results. Labs: Lab Results 01/18/24 01/18/24 Range/Units 18:27 19:36 Urine Color Yellow Urine Appearance Cloudy Urine pH 5.5 (5.0-9.0) Ur Specific [place] 1.025 (1.005-1.025) Urine Protein Trace (Neg-Trace) mg/dL Urine Glucose (UA) Negative (Negative) mg/dL Urine Ketones 15 (Negative) mg/dL Urine Blood Moderate (2+) H (Negative) Urine Nitrite Negative (Negative) Ur Leukocyte Esterase Negative (Negative) Urine RBC 0-2 (0-2) /HPF Urine WBC 0-5 (0-5) /HPF Ur Squamous Epith Cells >20 (0-2) /HPF Urine Bacteria 2+ (None Seen) Hyaline Casts 0-2 (0-2) /LPF Urine Test NEGATIVE (NEGATIVE) Influenza Type A (PCR) NEGATIVE (Negative) Influenza Type B (PCR) NEGATIVE (Negative) RSV RNA Qual (PCR) NEGATIVE (Negative) SARS-CoV-2 RNA (RT-PCR) NEGATIVE (Negative) Independent Historian Clinical information obtained from an independent historian. History obtained from or confirmed by: Spouse Prescription Management I considered prescription management with: Pain Medication and Other (Antiemetics, antidiarrheal medications) Discharge Plan Discharge Clinical Impression: Viral syndrome Vomiting Qualifiers: Vomiting type: unspecified Nausea presence: with nausea Qualified Code(s): R11.2 - Nausea with vomiting, unspecified Diarrhea Qualifiers: Diarrhea type: unspecified type Qualified Code(s): R19.7 - Diarrhea, unspecified Patient Disposition: Home, Self-Care Instructions: Viral Syndrome (ED) Additional Instructions: Your COVID-19, influenza and RSV tests were negative Your urine test was negative. Your urinalysis was negative for infection as well. Your symptoms are consistent with a viral infection that is giving you vomiting and diarrhea. Take ibuprofen 200 mg pills, 2 pills every 6 hours as needed for pain or fever. Take Tylenol (acetaminophen) 500 mg pills, 2 pills every 6 hours as needed for pain or fever. Take Zofran ODT 4 mg pills, 1 pill dissolved in your mouth every 8 hours as needed for nausea and vomiting. For diarrhea I want you to take Imodium 2 mg pills. ?Take 2 pills after the 1st loose, diarrheal stool then 1 pill after each loose, diarrheal stool up to 8 pills per day. ?This usually stops diarrhea within 24 hours. Follow-up with your doctor in 2 days. Please return to the emergency department if your symptoms get worse or if you develop any symptoms that are concerning to you. Prescriptions: New loperamide [Imodium A-D] 2 mg tablet 2 mg PO Q4H PRN (Reason: loose stool) Qty: 20 0RF acetaminophen [Tylenol Extra Strength] 500 mg tablet 1,000 mg PO Q6H PRN (Reason: fever or pain) Qty: 20 0RF ibuprofen 400 mg tablet 400 mg PO TID PRN (Reason: fever or pain) Qty: 30 0RF ondansetron 4 mg tablet,disintegrating 4 mg PO Q6-8H PRN (Reason: nausea and vomiting) Qty: 14 0RF Stand Alone Forms: Work/School Release
[2024-01-18 18:42] LABS: Appearance Urine Cloudy; Color Urine Yellow; Glucose Urine UA Negative (Negative); Leukocyte Esterase Urine Negative (Negative); Nitrite Urine Negative (Negative); PH 5.5 (5.0-9.0); Specific Gravity - Urine 1.025 (1.005-1.025); UMIC TRIGGER UACC YES; Urine Blood Moderate (2+) (Negative); Urine Ketones 15 mg/dL (Negative); Urine Protein Trace mg/dL (Neg-Trace)
[2024-01-18 18:43] LABS: UPreg QC Valid YES; Urine Pregnancy NEGATIVE (NEGATIVE)
[2024-01-18 19:19] LABS: Bacteria Urine 2+ (None Seen); Hyaline Casts Urine 0-2 /LPF (0-2); RBC Urine 0-2 /HPF (0-2); Squamous Epithelial Cell Urine >20 /HPF (0-2); WBC Urine 0-5 /HPF (0-5)
[2024-01-18] MEDS: Ondansetron ODT 4 MG TAB.RAPDIS TRANSLINGU (20:23)
[2024-01-18 20:36] LABS: Influenza A PCR NEGATIVE (Negative); Influenza B PCR NEGATIVE (Negative); Resp Syncy Virus RNA Qual PCR NEGATIVE (Negative); SARS COV2 PCR INHOUSE NEGATIVE (Negative)
[2024-01-18 21:15] VITALS: BP 122/57; PULSE 85; RESP 18; TEMP 36.3; O2SAT 99
[2024-01-18 21:19] VITALS: BP 122/57; PULSE 85; RESP 18; TEMP 36.3; O2SAT 99
== END 2024-01-18 21:20 | disposition home or self-care (01) ==
PROVIDERS: Nurse Practitioner Family; Emergency Provider Emergency Medicine Emergency Medical Services
DX: B34.9 Viral infection, unspecified (principal); R11.2 Nausea with vomiting, unspecified; R19.7 Diarrhea, unspecified; R53.83 Other fatigue
CPT/HCPCS: 0241U; 81001; 81025; 99283

== ENCOUNTER 2024-02-06 00:13 | Emergency (ER) | payer OTHER, SELFPAY ==
--- NOTE | ~2024-02-06 | CT_ITS ---
EXAMINATION: CT ABDOMEN AND PELVIS WITHOUT CONTRAST CLINICAL INFORMATION: Right flank pain, question stone COMPARISON: 10/20/2023 TECHNIQUE: Multidetector volumetric imaging was performed from the superior aspect of the liver through the pubic symphysis. Sagittal and coronal reformatted images were obtained on the technologist's workstation. This CT examination was performed using dose optimization techniques as appropriate, variously including the following: *Automated exposure control *Adjustment of mA and/or kV according to patient size (this includes techniques or standardized protocols for targeted exams where dose is matched to indication/reason for exam; i.e. extremities or head) *Use of iterative reconstruction technique DLP: 317 mGy-cm FINDINGS: LUNG BASES: There is a stable 4 mm left lower lobe nodule on image 383/[id number] laterally, statistically likely benign in the absence of clinical risk factors. LIVER, GALLBLADDER, AND BILIARY TREE: The liver is normal in size, shape, and attenuation. No focal hepatic lesion or biliary ductal dilatation is identified on this noncontrast exam. The gallbladder is unremarkable. PANCREAS: Grossly unremarkable, suboptimally assessed without intravenous contrast. SPLEEN: Unremarkable. Splenule is suspected. ADRENAL GLANDS: Unremarkable. KIDNEYS AND URETERS: Right renal pelvis and much of the right ureter appear moderately dilated. There is a 4 mm calcification in the region of the right ureterovesicular junction which is suspicious for an obstructing calculus in this setting, though the distal most ureter is not well delineated. No appreciable left-sided hydronephrosis. Tiny left renal calculus noted. BLADDER: Minimally distended and suboptimally assessed. GASTROINTESTINAL TRACT: No evidence of bowel obstruction. Limited evaluation for wall thickening in some regions of the colon due to luminal collapse. Patient is suspected to be status post appendectomy. Questionable trace pelvic free fluid. No free air is seen. ABDOMINAL WALL: No significant hernia is appreciated. LYMPH NODES: Significantly limited evaluation due to lack of intra-abdominal fat and absence of intravenous contrast. VASCULAR: Grossly unremarkable, suboptimally assessed without intravenous contrast. PELVIC VISCERA: Possible bicornuate uterus configuration, suboptimally assessed on this exam. OSSEOUS STRUCTURES: Redemonstrated sclerosis in the iliac bones near the sacroiliac joints. CT/CT abdomen pelvis wo IV con IMPRESSION: 1. Moderate right hydroureteronephrosis with a suspected 4 mm calculus at the right ureterovesicular junction, though the distal most ureter is not well delineated. 2. 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 This may be further evaluated with pelvic ultrasound. 3. Left lower lobe 4 mm lung nodule, statistically likely benign in the absence of clinical risk factors.
[2024-02-06 00:32] VITALS: BP 112/60; BP 126/65; PULSE 52; PULSE 58; RESP 19; TEMP 37.1; O2SAT 100; BMI 22.7
--- NOTE | 2024-02-06 00:39 | ED.ABDPAIN ---
HPI - Abdominal Pain General Chief Complaint: Abdominal Pain Stated Complaint: abdominal pain Time Seen by Provider: 02/06/24 00:33 Source: patient Mode of arrival: ambulatory Limitations: no limitations History of Present Illness HPI narrative: Patient is status post appendectomy 01/12 with history of kidney stone comes here for sudden onset of pain right flank area for about 2 hours ago associated with nausea and vomiting pain is radiating to the right lower abdomen is sharp and constant patient never had similar pain in the past Related Data Previous Rx's ?Medication ?Instructions ?Recorded acetaminophen 500 mg tablet 1,000 mg (2 x 500 mg) PO Q6H PRN 01/18/24 (Tylenol Extra Strength) fever or pain #20 tabs ibuprofen 400 mg tablet 400 mg PO TID PRN fever or pain 01/18/24 #30 tabs loperamide 2 mg tablet (Imodium 2 mg PO Q4H PRN loose stool #20 01/18/24 A-D) tabs ondansetron 4 mg disintegrating 4 mg PO Q6-8H PRN nausea and 01/18/24 tablet vomiting #14 tabs ondansetron 4 mg disintegrating 4 mg PO Q6-8H PRN nausea and 02/06/24 tablet vomiting #10 tabs oxycodone 5 mg tablet 5 mg PO Q6H PRN pain #20 tabs 02/06/24 tamsulosin 0.4 mg capsule (Flomax) 0.4 mg PO BEDTIME #7 caps 02/06/24 Allergies Allergy/AdvReac Type Severity Reaction Status Date / Time No Known Allergies Allergy Verified 02/06/24 00:34 Review of Systems Review of Systems Yes all other systems are reviewed and are negative [facility] Social History Social History Smoked in Last 30 Days: No Use of substances other than those prescribed or required for medical reasons: No Advance Directives: No Advance Directives Information Provided: No Patient : No Physical Exam ED Vital Signs: Vital Signs - 24 hr 02/06/24 00:32 02/06/24 02:37 02/06/24 06:28 Temperature 98.7 F 98.2 F 98.3 F Pulse Rate 52 49 L 63 Respiratory Rate 19 20 20 Blood Pressure 126/65 142/84 H 128/68 Pulse Oximetry 100 100 100 Oxygen Delivery Method Room Air Room Air Room Air 02/06/24 06:32 Temperature 98.3 F Pulse Rate 63 Respiratory Rate 20 Blood Pressure 128/68 Pulse Oximetry 100 Oxygen Delivery Method Room Air BMI result Body Mass Index 22.7 Appearance: Alert. Oriented X3. In moderate distress Eyes: No pallor or icterus ENT: Pharynx normal. Oral Mucosa moist Neck: Normal inspection. Neck supple. CVS: Normal heart rate and rhythm. Pulses normal. Respiratory: No respiratory distress. Equal air entry bilateral, no wheezing/rales/rhonchi Abdomen: Soft and nontender. Bowel sounds are present, no mass palpable, right CVA tenderness Skin: Skin warm and dry. Normal skin color. Normal skin turgor. Extremities: No lower extremity edema. No calf tenderness Neuro: Oriented X 3. Medical Decision Making Medical Decision Making [facility] Narrative: Patient's right renal colic with UV junction distal ureteric stone of 4 mm patient responded to IV pain medication and Flomax was given Decadron also patient will be follow with Dr. Ocampo Differential Diagnosis Differential Diagnoses: The differential diagnosis associated with the presentation includes Kidney stone/UTI Admission/Observation Consideration of admission/observation: Escalation of care including admission/observation considered Lab Data [facility] Lab Attestation statement: I reviewed the patient's lab results. 02/06/24 00:41 02/06/24 00:41 Labs: Lab Results 02/06/24 02/06/24 Range/Units 00:41 02:19 WBC 17.0 H (4.8-10.8) X10*3/uL RBC 3.75 L (4.20-5.50) X10*6/uL Hgb 11.6 L (12.0-16.0) g/dl Hct 34.9 L (37.0-47.0) % MCV 93.1 (80.0-98.0) fL MCH 30.9 (27.0-33.0) pg MCHC 33.2 (31.0-35.0) g/dl RDW 12.6 (11.0-16.0) % Plt Count 383 D (160-400) X10*3/uL MPV 9.5 (9.4-12.3) fL Immature Gran % (Auto) 0.5 H (0.0-0.4) % Neut % (Auto) 78.7 H (45-73) % Lymph % (Auto) 13.9 L (20-40) % [place] % (Auto) 6.5 (2-11) % Eos % (Auto) 0.2 (0-4) % Baso % (Auto) 0.2 (0-2) % Lymph # (Auto) 2.4 (1.2-4.9) X10*3/uL [place] # (Auto) 1.1 (0.1-1.2) X10*3/uL Eos # (Auto) 0.0 (0.0-0.4) X10*3/uL Baso # (Auto) 0.0 (0.0-0.2) X10*3/uL Abs Immat Gran (auto) 0.09 H (0.00-0.03) X10*3/uL Absolute Neuts (auto) 13.4 H (2.0-8.3) x10*3/uL Absolute Nucleated RBC 0.000 (0.0-0.012) X10*3/uL Nucleated RBC % (auto) 0.0 (0.0-0.2) /100WBC Sodium 139 (135-145) mmol/L Potassium 3.9 (3.3-5.1) mmol/L Chloride 105 (96-108) mmol/L Carbon Dioxide 26 (22-29) mmol/L Anion Gap 12 (12-20) BUN 14 (9-16) mg/dL Creatinine 1.11 (0.5-1.4) mg/dL Estim Creat Clear Calc 63.3 Estimated GFR > 60 Random Glucose 151 H (60-115) mg/dL Calcium 9.3 D (8.4-10.2) mg/dL Total Bilirubin 0.2 (0.0-1.0) mg/dL Direct Bilirubin < 0.2 (0.0-0.5) mg/dL AST 20 (5-31) U/L ALT 20 (0-31) U/L Alkaline Phosphatase 42 (39-117) U/L Total Protein 6.9 (6.5-8.0) g/dL Albumin 4.1 (3.5-5.0) g/dL Lipase 29 (8-78) U/L Beta HCG, Quant < 2 mIU/mL Urine Color Yellow Urine Appearance Clear Urine pH 5.5 (5.0-9.0) Ur Specific [place] 1.025 (1.005-1.025) Urine Protein Trace (Neg-Trace) mg/dL Urine Glucose (UA) Negative (Negative) mg/dL Urine Ketones 15 (Negative) mg/dL Urine Blood Small (1+) H (Negative) Urine Nitrite Negative (Negative) Ur Leukocyte Esterase Negative (Negative) Urine RBC 3-5 H (0-2) /HPF Urine WBC 0-5 (0-5) /HPF Ur Squamous Epith Cells 6-10 (0-2) /HPF Urine Bacteria 2+ (None Seen) Hyaline Casts 0-2 (0-2) /LPF Independent Interpretation I performed an independent interpretation of an: CT Scan Radiology Impression Discussion of test interpretation with radiology: I have reviewed the radiologist's reading. Medications Administered Discontinued Medications Generic Name Dose Route Start Last Admin Trade Name Freq PRN Reason Stop Dose Admin Dexamethasone Sodium Phosphate 10 mg 02/06/24 03:27 02/06/24 03:35 Dexamethasone Sod Phosphate 10 Mg/Ml Vial IVPUSH 02/06/24 03:28 10 mg ONCE ONE Administration Hydromorphone HCl 1 mg 02/06/24 03:27 02/06/24 03:35 Hydromorphone Hcl 1 Mg/Ml Syringe IVPUSH 02/06/24 03:28 1 mg ONCE ONE Administration Protocol Sodium Chloride 1,000 mls @ 999 mls/hr 02/06/24 00:53 02/06/24 02:02 Ns IV 02/06/24 01:53 Infused .Q1H1M ONE Infusion Sodium Chloride 1,000 mls @ 999 mls/hr 02/06/24 02:12 02/06/24 03:13 Ns IV 02/06/24 03:12 Infused .Q1H1M ONE Infusion Ketorolac Tromethamine 30 mg 02/06/24 00:53 02/06/24 01:00 Ketorolac Tromethamine 30 Mg/Ml Vial IVPUSH 02/06/24 00:54 30 mg ONCE ONE Administration Metoclopramide HCl 10 mg 02/06/24 06:18 02/06/24 06:22 Metoclopramide Hcl 10 Mg/2 Ml Vial IVPUSH 02/06/24 06:19 10 mg ONCE ONE Administration Morphine Sulfate 4 mg 02/06/24 00:53 02/06/24 01:00 Morphine Sulfate 4 Mg/Ml Cartridge IVPUSH 02/06/24 00:54 4 mg ONCE ONE Administration Protocol Morphine Sulfate 4 mg 02/06/24 02:12 02/06/24 02:16 Morphine Sulfate 4 Mg/Ml Cartridge IVPUSH 02/06/24 02:13 4 mg ONCE ONE Administration Protocol Ondansetron HCl 4 mg 02/06/24 00:53 02/06/24 01:00 Ondansetron Hcl 4 Mg/2 Ml Vial IVPUSH 02/06/24 00:54 4 mg ONCE ONE Administration Ondansetron HCl 4 mg 02/06/24 03:43 02/06/24 03:44 Ondansetron Hcl 4 Mg/2 Ml Vial IVPUSH 02/06/24 03:44 4 mg ONCE ONE Administration Oxycodone HCl 5 mg 02/06/24 06:18 02/06/24 06:22 Oxycodone Hcl Immed Release 5 Mg Tablet PO 02/06/24 06:19 5 mg ONCE ONE Administration Tamsulosin HCl 0.4 mg 02/06/24 02:58 02/06/24 03:35 Tamsulosin Hcl 0.4 Mg Capsule PO 02/06/24 02:59 0.4 mg ONCE ONE Administration Discharge Plan Discharge Clinical Impression: Right distal ureteral calculus Patient Disposition: Home, Self-Care Instructions: Low Oxalate Diet (ED), Ureteral Stones (ED) Additional Instructions: Drink plenty of fluids Pain medication as prescribed Medicine for nausea as prescribed Take Flomax daily untill stone passed Report to ER if pain gets worse Follow with urologist size of your stone is small likely it will pass Prescriptions: New oxycodone 5 mg tablet 5 mg PO Q6H PRN (Reason: pain) Qty: 20 0RF Rx Instructions: Partial Fill upon patient request. tamsulosin [Flomax] 0.4 mg capsule 0.4 mg PO BEDTIME Qty: 7 0RF ondansetron 4 mg tablet,disintegrating 4 mg PO Q6-8H PRN (Reason: nausea and vomiting) Qty: 10 0RF No Action loperamide [Imodium A-D] 2 mg tablet 2 mg PO Q4H PRN (Reason: loose stool) Qty: 20 0RF acetaminophen [Tylenol Extra Strength] 500 mg tablet 1,000 mg PO Q6H PRN (Reason: fever or pain) Qty: 20 0RF ibuprofen 400 mg tablet 400 mg PO TID PRN (Reason: fever or pain) Qty: 30 0RF ondansetron 4 mg tablet,disintegrating 4 mg PO Q6-8H PRN (Reason: nausea and vomiting) Qty: 14 0RF Referrals: Olegario Ocampo MD [Physician] - 1 week Stand Alone Forms: Work/School Release Interventions: ED Discharge Assessment Last Done: 02/06/24 06:32 Discharge Date/Time: 02/06/24 06:35 Print Language: Malay
[2024-02-06 00:46] LABS: MANUAL DIFF FLAG NO
[2024-02-06 00:47] LABS: Basophils Percent Auto 0.2 % (0-2); Eosinophils Percent Auto 0.2 % (0-4); Hematocrit 34.9 % (37.0-47.0); Hemoglobin 11.6 g/dl (12.0-16.0); Imm Gran Abs Auto 0.09 X10*3/uL (0.00-0.03); Imm Gran Pct Auto 0.5 % (0.0-0.4); Lymphocytes Absolute Auto 2.4 X10*3/uL (1.2-4.9); Lymphocytes Percent Auto 13.9 % (20-40); Mean Corpuscular HGB Conc 33.2 g/dl (31.0-35.0); Mean Corpuscular Hemoglobin 30.9 pg (27.0-33.0); Mean Corpuscular Volume 93.1 fL (80.0-98.0); Mean Platelet Volume 9.5 fL (9.4-12.3); Monocytes Absolute Auto 1.1 X10*3/uL (0.1-1.2); Monocytes Percent Auto 6.5 % (2-11); Neutrophils Absolute Auto 13.4 x10*3/uL (2.0-8.3); Neutrophils Percent Auto 78.7 % (45-73); Platelet Count 383 X10*3/uL (160-400); Red Blood Count 3.75 X10*6/uL (4.20-5.50); Red Cell Distribution Width 12.6 % (11.0-16.0)
[2024-02-06 01:00] LABS: Alanine Aminotransferase 20 U/L (0-31); Albumin Level 4.1 g/dL (3.5-5.0); Alkaline Phosphatase 42 U/L (39-117); Anion Gap 12 (12-20); Aspartate Amino Transferase 20 U/L (5-31); Bilirubin Direct < 0.2 mg/dL (0.0-0.5); Bilirubin Total 0.2 mg/dL (0.0-1.0); Blood Urea Nitrogen 14 mg/dL (9-16); Calcium 9.3 mg/dL (8.4-10.2); Carbon Dioxide 26 mmol/L (22-29); Chloride 105 mmol/L (96-108); Creatinine Clr Calc Pharmacy 63.3; Estimated Glomerular Filt Rate > 60; Glucose Random 151 mg/dL (60-115); Lipase 29 U/L (8-78); Potassium 3.9 mmol/L (3.3-5.1); Sodium 139 mmol/L (135-145); Total Protein 6.9 g/dL (6.5-8.0)
[2024-02-06] MEDS: Morphine Sulfate 4 MG/ML CARTRIDGE IVPUSH ×2 (01:00→02:16)
[2024-02-06] MEDS: ondansetron HCL 4 MG/2 ML VIAL IVPUSH ×2 (01:00→03:44)
[2024-02-06] MEDS: 0.9 % Sodium Chloride 1,000 ML 999 ML IV ×2 (01:00→02:18)
[2024-02-06] MEDS: Ketorolac Tromethamine 30 MG/ML VIAL IVPUSH (01:00)
[2024-02-06 01:07] LABS: HCG Quantitative < 2 mIU/mL
[2024-02-06 02:28] LABS: Appearance Urine Clear; Color Urine Yellow; Glucose Urine UA Negative (Negative); Leukocyte Esterase Urine Negative (Negative); Nitrite Urine Negative (Negative); PH 5.5 (5.0-9.0); Specific Gravity - Urine 1.025 (1.005-1.025); UMIC TRIGGER UACC YES; Urine Blood Small (1+) (Negative); Urine Ketones 15 mg/dL (Negative); Urine Protein Trace mg/dL (Neg-Trace)
[2024-02-06 02:37] VITALS: BP 142/84; PULSE 49; RESP 20; TEMP 36.8; O2SAT 100
[2024-02-06 02:59] LABS: Bacteria Urine 2+ (None Seen); Hyaline Casts Urine 0-2 /LPF (0-2); WBC Urine 0-5 /HPF (0-5)
[2024-02-06] MEDS: dexAMETHasone sod phosphate 10 MG/ML VIAL IVPUSH (03:35)
[2024-02-06] MEDS: HYDROmorphone HCl 1 MG/ML SYRINGE IVPUSH (03:35)
[2024-02-06] MEDS: Tamsulosin HCL 0.4 MG CAPSULE PO (03:35)
[2024-02-06] MEDS: Metoclopramide HCl 10 MG/2 ML VIAL IVPUSH (06:22)
[2024-02-06] MEDS: oxyCODONE HCl Immed Release 5 MG TABLET PO (06:22)
[2024-02-06 06:28] VITALS: BP 128/68; PULSE 63; RESP 20; TEMP 36.8; O2SAT 100
[2024-02-06 06:32] VITALS: BP 128/68; PULSE 63; RESP 20; TEMP 36.8; O2SAT 100
== END 2024-02-06 06:35 | disposition home or self-care (01) ==
PROVIDERS: Emergency Provider Internal Medicine
DX: N20.1 Calculus of ureter (principal); R10.2 Pelvic and perineal pain; R11.2 Nausea with vomiting, unspecified; Z79.899 Other long term (current) drug therapy
CPT/HCPCS: 36415; 74176; 80048; 80076; 81001; 83690; 84702; 85025; 96361; 96374; 96375; 96376; 99284; J1100; J1170; J1885; J2270; J2405; J2765

== ENCOUNTER 2024-03-05 13:41 | Outpatient (AMB) | payer OTHER, SELFPAY ==
--- NOTE | 2024-03-05 13:50 | MHC.OFFVIS ---
Intake Visit Reasons: kidney stone with hydronephrosis Intake Note: New Patient presents for initial visit for kidney stone with hydronephrosis Urology Medications: none Blood Thinner: none Enrollment Coordinator Required: No Accompanied by: Unknown Allergies No Known Allergies Allergy (Verified 03/05/24 14:22) Medication List - Last Reconciled 03/05/24 by JAMIL Hartmann No Known Home Meds HPI Comments Details: Steven villafana is a very pleasant 23-year-old female patient who was accompanied by her significant other and her son at today's office visit. She presents to the office today as a new patient for nephrolithiasis. In discussion with the patient today she reports having had two episodes of nephrolithiasis since the beginning of this year. She reports most recently seeking emergency room care approximately one month ago for right-sided flank pain she had been experiencing. Recent CT results reviewed with the patient today there is a 4 mm calcification in the region of the right ureterovesicular junction which is suspicious for an obstructing calculus in this setting, though the distal most ureter is not well delineated. No appreciable left-sided hydronephrosis. Tiny left renal calculus noted. The bladder is minimally distended and suboptimally assessed. She reports pain has since subsided. She denies any previous history of nephrolithiasis and or surgical intervention for nephrolithiasis. She currently denies any bothersome urinary issues or concerns. She denies urinary urgency, urinary frequency, incontinence, nocturia, hematuria, dysuria, foul smelling urine, changes to urinary stream, flank pain, fever, and or chills. She is happy with her current voiding parameters. Review of Systems Const All systems reviewed & are unremarkable except as noted in HPI and below Physical Exam Const General: cooperative, healthy appearing, comfortable, no acute distress, well developed, alert and awake Orientation/consciousness: patient oriented x3 Limitations: no limitations HEENT Head: Yes normal to inspection, Yes normocephalic and Yes atraumatic Ears: hearing grossly normal bilaterally Eyes General: appearance normal, both eyes and all related structures Neck Neck: Yes normal visual inspection and Yes trachea midline Chest Chest palpation & inspection: normal inspection of the chest Resp Effort & Inspection: normal respiratory effort and able to speak in complete sentences Cardio Rate: regular rate GI Inspection: Yes normal to inspection General: Yes no CVA tenderness Back/Spine/Pelvis Back: no CVA tenderness Skin General skin exam: no rashes or lesions noted Neuro General: patient oriented x3 Extrem General: Yes normal to inspection Psych Appearance: grossly normal and well kempt Mental Status: mental status grossly normal Speech and movement: Normal speech and movement present and Clear speech present Affect: normal affect Attitude: cooperative Thought process: Normal thought process present Thought content: Normal thought content present Insight: Fair insight present (Psych) Judgement: Fair judgement present (Psych) Results AMB Urinalysis, Automated UA Leukoctes 0 Camryn/uL Last Edit by [employer] on 03/05/24 14:23 UA Nitrite Negative Last Edit by [employer] on 03/05/24 14:23 UA Urobilinogen 0.2 mg/dL Last Edit by [employer] on 03/05/24 14:23 UA Protein 0 mg/dL Last Edit by [employer] on 03/05/24 14:23 UA pH 6.0 Last Edit by [employer] on 03/05/24 14:23 UA Blood 0 Ernst/uL Last Edit by [employer] on 03/05/24 14:23 UA Specific [place] 1.020 Last Edit by [employer] on 03/05/24 14:23 UA Ketone Negative Last Edit by [employer] on 03/05/24 14:23 UA Bilirubin 0 mg/dL Last Edit by [employer] on 03/05/24 14:23 UA Glucose 0 mg/dL Last Edit by [employer] on 03/05/24 14:23 Results Reviewed Results Reviewed: Laboratory Last Values Urine pH (Auto) 6.0 03/05/24 14:10 Specific [place] (Auto) 1.020 03/05/24 14:10 Urine Protein (Auto) 0 mg/dL 03/05/24 14:10 Glucose (UA)(Auto) 0 mg/dL 03/05/24 14:10 Urine Ketones (Auto) Negative 03/05/24 14:10 Urine Blood (Auto) 0 Ernst/uL 03/05/24 14:10 Urine Nitrite (Auto) Negative 03/05/24 14:10 Urine Bilirubin (Auto) 0 mg/dL 03/05/24 14:10 Urine Urobilinogen (Auto) 0.2 mg/dL 03/05/24 14:10 Leukocyte Esterase (Auto) 0 Camryn/uL 03/05/24 14:10 Date of Service: 02/06/24 EXAMINATION: CT ABDOMEN AND PELVIS WITHOUT CONTRAST FINDINGS: LUNG BASES: There is a stable 4 mm left lower lobe nodule on image [id number] laterally, statistically likely benign in the absence of clinical risk factors. LIVER, GALLBLADDER, AND BILIARY TREE: The liver is normal in size, shape, and attenuation. No focal hepatic lesion or biliary ductal dilatation is identified on this noncontrast exam. The gallbladder is unremarkable. PANCREAS: Grossly unremarkable, suboptimally assessed without intravenous contrast. SPLEEN: Unremarkable. Splenule is suspected. ADRENAL GLANDS: Unremarkable. KIDNEYS AND URETERS: Right renal pelvis and much of the right ureter appear moderately dilated. There is a 4 mm calcification in the region of the right ureterovesicular junction which is suspicious for an obstructing calculus in this setting, though the distal most ureter is not well delineated. No appreciable left-sided hydronephrosis. Tiny left renal calculus noted. BLADDER: Minimally distended and suboptimally assessed. GASTROINTESTINAL TRACT: No evidence of bowel obstruction. Limited evaluation for wall thickening in some regions of the colon due to luminal collapse. Patient is suspected to be status post appendectomy. Questionable trace pelvic free fluid. No free air is seen. ABDOMINAL WALL: No significant hernia is appreciated. LYMPH NODES: Significantly limited evaluation due to lack of intra-abdominal fat and absence of intravenous contrast. VASCULAR: Grossly unremarkable, suboptimally assessed without intravenous contrast. PELVIC VISCERA: Possible bicornuate uterus configuration, suboptimally assessed on this exam. OSSEOUS STRUCTURES: Redemonstrated sclerosis in the iliac bones near the sacroiliac joints. IMPRESSION: 1. Moderate right hydroureteronephrosis with a suspected 4 mm calculus at the right ureterovesicular junction, though the distal most ureter is not well delineated. 2. 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 This may be further evaluated with pelvic ultrasound. 3. Left lower lobe 4 mm lung nodule, statistically likely benign in the absence of clinical risk factors. Assessment & Plan Assessment & Plan (1) Nephrolithiasis: Code(s): N20.0 - Calculus of kidney Category: Medical (2) Hydronephrosis: Code(s): N13.30 - Unspecified hydronephrosis Category: Medical Plan In office urinalysis results reviewed with the patient today; as noted above. Patient currently denies any bothersome urinary issues or concerns. Recent CT results reviewed with the patient today; as noted above. Discussed at length potential causes of nephrolithiasis. Discussed, educated, and stressed the importance of drinking plenty of water daily. Discussed adding 1 oz of lemon juice to water daily. Will obtain retroperitoneal ultrasound for further assessment evaluation. Follow-up once imaging is completed; or sooner with any issues, concerns, and or questions. Orders: Orders AMB Urinalysis Automated Today Z13.9 - Encounter for screening, unspecified Patient Instructions: The patient had an opportunity to ask questions regarding the treatment plan. All questions were answered. Physical exam, labs, and imaging were discussed and reviewed in detail. As well as risks, benefits, and discussion of treatment choices. No major barriers to understanding were identified. The patient expressed understanding and agreement with the above treatment plan. The patient was made aware they should contact our office by phone for worsening of their current condition, the appearance of new symptoms, or with any questions or concerns. Compliance is encouraged with any medications and follow up testing that is ordered. It is a privilege to be allowed the opportunity to participate in? your urological care.? Again, if you have any questions or concerns If you have any questions or concerns please do not hesitate to contact me. The office is [phone]. This note is constructed using voice recognition software. While every effort has been made to ensure accuracy robotics mechanic errors may have been included. Yours sincerely, JAMIL Hartmann Coding Level of Care Code New Pt Level 3 (65948) Diagnoses Nephrolithiasis N20.0 Hydronephrosis N13.30
== END 2024-03-05 14:19 | disposition home or self-care (01) ==
PROVIDERS: Visit Provider Nurse Practitioner Family
DX: N20.0 Calculus of kidney (principal); N13.30 Unspecified hydronephrosis; Z13.9 Encounter for screening, unspecified
CPT/HCPCS: 99203

== ENCOUNTER → 2024-03-05 13:41 | Outpatient (BNVA) | payer OTHER, SELFPAY | PROVIDERS: Visit Provider Nurse Practitioner Family | DX: N20.0 Calculus of kidney (principal); N13.30 Unspecified hydronephrosis | CPT/HCPCS: 81003; 99202 ==

== ENCOUNTER 2025-03-29 00:47 | Emergency (ER) | payer OTHER, SELFPAY ==
[2025-03-29 00:59] VITALS: BP 121/57; PULSE 89; RESP 16; TEMP 36.9; O2SAT 97; BMI 22.9
--- NOTE | 2025-03-29 02:53 | ED.GENADULT ---
HPI - General Adult General Chief complaint: Eye Problems Stated complaint: foreign object in right eye Time Seen by Provider: 03/29/25 02:23 Source: patient Limitations: no limitations History of Present Illness ED Provider: Jacque Giron PA-C HPI narrative: 24-year-old female presents with right eye pain. Patient states she feels as if she has had an eyelash in the right eye since this morning. She has been unable to dislodge it, she has been excessively rubbing the eye. She now has swelling of the upper lid and pain. Patient is quite anxious. She does not wear contact lenses she is not diabetic. Related Data Previous Rx's ?Medication ?Instructions ?Recorded erythromycin 5 mg/gram (0.5 %) eye 0.5 inch ophthalmic-Right QID #3.5 03/29/25 ointment grams ketorolac 0.5 % eye drops 1 drp ophthalmic (eye) QID PRN 03/29/25 pain #5 mL Allergies Allergy/AdvReac Type Severity Reaction Status Date / Time No Known Allergies Allergy Verified 03/29/25 01:03 Review of Systems Review of Systems: Yes all other systems are reviewed and are negative Constitutional: Constitutional: Denies fatigue and Denies fever(s) Eyes: Eyes: Reports eye pain Endocrine: Endocrine: Denies fatigue PMFSH Past Medical History Attestation statement: The following information was validated with the patient. Social History Social History Advance Directives: No Advance Directives Information Provided: No Do you have a plan to hurt others: No Plan Physical Exam ED Vital Signs: Vital Signs - 24 hr 03/29/25 00:59 Temperature 98.4 F Pulse Rate 89 Respiratory Rate 16 Blood Pressure 121/57 L Pulse Oximetry 97 Oxygen Delivery Method Room Air BMI result Body Mass Index 22.9 Const Other: Alert, anxious, panicking Orientation/consciousness: patient oriented x3 Eyes Other: The sclera is not injected, no foreign body visualized with inversion of the upper lid, we will fluorescein stain, she has a corneal abrasion Resp Effort & Inspection: normal respiratory effort Cardio Other: Normal peripheral perfusion Skin Other: Warm dry no rash Neuro General: patient oriented x3, gait normal, no focal motor deficits and CN's II-XI intact bilaterally Psych Other: Cooperative Medications Administered Discontinued Medications Generic Name Dose Route Start Last Admin Trade Name Freq PRN Reason Stop Dose Admin Erythromycin 1 cm 03/29/25 02:46 03/29/25 03:04 Erythromycin Base 0.5% Oph Oin 1 Gm Tube EYE-RIGHT 03/29/25 02:47 1 cm ONCE ONE Administration Fluorescein Sodium 1 strip 03/29/25 02:23 03/29/25 03:04 Fluorescein Sodium Strip EYE-RIGHT 03/29/25 02:24 1 strip ONCE ONE Administration Tetracaine HCl 3 drop 03/29/25 02:23 03/29/25 03:04 Tetracaine Hcl 0.5% Oph Teena 5 Ml Drops EYE-RIGHT 03/29/25 02:24 3 drop ONCE ONE Administration Medical Decision Making Medical Decision Making MDM Narrative: 24-year-old female presents with right eye pain. Patient states she feels as if she has had an eyelash in the right eye since this morning. She has been unable to dislodge it, she has been excessively rubbing the eye. She now has swelling of the upper lid and pain. Patient is quite anxious. She does not wear contact lenses she is not diabetic. No chronic issues History: Per patient I have considered the following differential diagnoses: Ocular foreign body, blepharitis, conjunctivitis, corneal abrasion Plan: The patient caused a corneal abrasion from her excessive rubbing, she has no risk factors for Pseudomonas, we will send with the erythromycin and ketorolac drops. Discharge Plan Discharge Clinical Impression: Abrasion of right cornea Patient Disposition: Home, Self-Care Instructions: Corneal Abrasion (ED) Additional Instructions: You were found to have a corneal abrasion. See home care instructions. Use the erythromycin ointment as directed, you can use it every 2 hours until you go to sleep. Tomorrow use it 4 times a day. Use the eyedrops as needed for eye pain. I am providing you with a contact for our ophthalmology service, call Sunday to make a follow up appointment. Prescriptions: New erythromycin 5 mg/gram (0.5 %) ointment 0.5 inch ophthalmic-Right QID Qty: 3.5 0RF ketorolac 0.5 % drops 1 drp ophthalmic (eye) QID PRN (Reason: pain) Qty: 5 0RF Referrals: Benjamin Chavis [Physician] Referral Note: right corneal abrasion, giving contact for a follow up appointment, she was told to call Sunday to schedule a time Stand Alone Forms: Work/School Release Interventions: ED Discharge Assessment Last Done: 03/29/25 03:02 Discharge Date/Time: 03/29/25 03:04 Print Language: Slovenian
[2025-03-29 03:02] VITALS: BP 121/57; PULSE 89; RESP 16; TEMP 36.9; O2SAT 97
[2025-03-29] MEDS: Tetracaine HCl 0.5% Oph Sol 5 ML DROPS 3 DROP EYE-RIGHT (03:04)
[2025-03-29] MEDS: Fluorescein Sodium STRIP 1 STRIP EYE-RIGHT (03:04)
[2025-03-29] MEDS: Erythromycin Base 0.5% Oph Oin 1 GM TUBE 1 CM EYE-RIGHT (03:04)
== END 2025-03-29 03:04 | disposition home or self-care (01) ==
PROVIDERS: Emergency Provider Emergency Medicine; PCP Internal Medicine
DX: S05.01XA Injury of conjunctiva and corneal abrasion without foreign body, right eye, initial encounter (principal); X58.XXXA Exposure to other specified factors, initial encounter; H57.11 Ocular pain, right eye; Y93.9 Activity, unspecified; Y92.9 Unspecified place or not applicable; Y99.9 Unspecified external cause status
CPT/HCPCS: 99282; 99283

== ENCOUNTER 2025-06-03 06:17 | Emergency (ER) | payer OTHER, SELFPAY ==
--- NOTE | ~2025-06-03 | XR_ITS ---
EXAMINATION: XR CHEST 2 VIEWS HISTORY: eval for mass COMPARISON: Comparison is made with the prior examination dated 02/27/2019. FINDINGS: PA and lateral views of the chest are submitted. The lungs are expanded and clear. There is no pleural effusion, pneumothorax, or pulmonary vascular congestion. The heart is normal in size. The bones are intact. XR/XR chest 2V IMPRESSION: No acute cardiopulmonary abnormality. Electronically signed by: Skyler Russell MD 06/03/2025 08:32 AM EDT
[2025-06-03 06:22] VITALS: BP 123/65; PULSE 88; RESP 17; TEMP 36.2; O2SAT 98; BMI 22.7
--- NOTE | 2025-06-03 07:13 | ED.GENADULT ---
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 She states they said it could be reaction to the biopsy. The notes persist. She has no night sweats, cough, weight loss, she does not own a cat. She denies recent illness. She is very upset and states she doesn't care for herself and is working all the time. She notes no lesly biopsy was done. She has no IVDA hx either. MD complaint: swollen lymph nodes Onset (ago): week(s) (2+) Location: left, right and upper extremity Radiation: non-radiation Severity: mild Quality: aching Pain Consistency: constant Relieving factors: immobilization Exacerbating factors: movement Associated symptoms: denies other symptoms Treatments prior to arrival: none Related Data Previous Rx's ?Medication ?Instructions ?Recorded erythromycin 5 mg/gram (0.5 %) eye 0.5 inch ophthalmic-Right QID #3.5 03/29/25 ointment grams ketorolac 0.5 % eye drops 1 drp ophthalmic (eye) QID PRN 03/29/25 pain #5 mL Allergies Allergy/AdvReac Type Severity Reaction Status Date / Time No Known Allergies Allergy Verified 06/03/25 06:23 Review of Systems Review of Systems: Constitutional : No Fever, No Chills, No Fatigue, no night sweats, no weight loss ENT/Mouth : No sore throat, No Rhinorrhea Eyes: No Eye Pain, No Swelling, No Redness Cardiovascular : No Chest Pain, No SOB, No Dyspnea on Exertion Respiratory : No Cough, No Sputum Gastrointestinal : No Nausea, No Vomiting, No Diarrhea, No abdominal Pain Genitourinary : No Dysuria, No Urinary Frequency, No Hematuria, Musculoskeletal : No joint pain, No Myalgias, No Joint Swelling Skin : No Skin Lesions, No rash Neuro : No Weakness, No Numbness, No Dizziness, positive Headache Psych : No Anxiety/Panic, No Depression Heme/Lymph: No Bruising, No Bleeding,pos Lymphadenopathy All other systems reviewed and are negative [facility] Past Medical History Attestation statement: The following information was validated with the patient. Source: old records reviewed Medical History (Updated 06/03/25 @ 08:37 by Daphnie Minor DO) Breast adenoma Acute appendicitis Social History Social History (Updated 06/03/25 @ 08:05 by Daphnie Minor DO) Patient Tobacco Use Status: Never used Tobacco Advance Directives: No Advance Directives Information Provided: Yes Do you have a plan to hurt others: No Plan Physical Exam ED Vital Signs: Vital Signs - 24 hr 06/03/25 06:22 06/03/25 08:18 Temperature 97.2 F 98.2 F Pulse Rate 88 55 Respiratory Rate 17 16 Blood Pressure 123/65 102/42 L Pulse Oximetry 98 100 Oxygen Delivery Method Room Air Room Air BMI result Body Mass Index 22.7 Appearance: Alert. Oriented X3. No acute distress. Eyes: Pupils equal, round and reactive to light. ENT: Pharynx normal. Neck: Normal inspection. CVS: Normal heart rate and rhythm. Pulses normal. Respiratory: No respiratory distress. Breath sounds normal. Abdomen: Soft and nontender. Groin bilateral shotty lymph nodes in the both groins no ttp Skin: Skin warm and dry. Normal skin color. Extremities: No lower extremity edema. L and R axilla small soft mobile non red shotty nodes under 1cm there is no redness or warmth to suggest infection Neuro: Oriented X 3. No motor deficit. No sensory deficit. CN2-12 intact Procedures Procedure Narrative Procedure Narrative: EMERGENCY ULTRASOUND INTERPRETATION- Limited Musculoskeletal? The study reveals: Impression: lymph node under 1cm Indication:?lymphadenopathy Joint Localization for fluid (anechoic):?? L axilla: noncompressible node under 1cm no flow no surrounding fluid Performed by: JM Date: 06/03/25 Time: 810am CPT: Reference Codes? 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 I will obtain basic labs and CXR to look for mediastinal ds and if work up negative refer her to call surgeon today as this was noticed at most recent visit with them as well. Differential Diagnosis Differential Diagnoses: The differential diagnosis associated with the presentation includes viral syndrome, no extra symptoms to suggest hodgkins Admission/Observation Consideration of admission/observation: Escalation of care including admission/observation considered can follow up with her surgeon today Lab Data MDM Lab Attestation statement: I reviewed the patient's lab results. 06/03/25 08:16 06/03/25 08:16 Labs: Lab Results 06/03/25 Range/Units 08:16 WBC 7.6 (4.8-10.8) X10*3/uL RBC 3.64 L (4.20-5.50) X10*6/uL Hgb 11.8 L (12.0-16.0) g/dl Hct 35.0 L (37.0-47.0) % MCV 96.2 (80.0-98.0) fL MCH 32.4 (27.0-33.0) pg MCHC 33.7 (31.0-35.0) g/dl RDW 12.4 (11.0-16.0) % Plt Count 269 D (160-400) X10*3/uL MPV 10.0 (9.4-12.3) fL Immature Gran % (Auto) 0.3 (0.0-0.4) % Neut % (Auto) 63.2 (45-73) % Lymph % (Auto) 27.2 (20-40) % Hays % (Auto) 6.8 (2-11) % Eos % (Auto) 2.1 (0-4) % Baso % (Auto) 0.4 (0-2) % Lymph # (Auto) 2.1 (1.2-4.9) X10*3/uL [place] # (Auto) 0.5 (0.1-1.2) X10*3/uL Eos # (Auto) 0.2 (0.0-0.4) X10*3/uL Baso # (Auto) 0.0 (0.0-0.2) X10*3/uL Abs Immat Gran (auto) 0.02 (0.00-0.03) X10*3/uL Absolute Neuts (auto) 4.8 (2.0-8.3) x10*3/uL Absolute Nucleated RBC 0.000 (0.0-0.012) X10*3/uL Nucleated RBC % (auto) 0.0 (0.0-0.2) /100WBC Sodium 142 (135-145) mmol/L Potassium 4.2 (3.3-5.1) mmol/L Chloride 110 H (96-108) mmol/L Carbon Dioxide 25 (22-29) mmol/L Anion Gap 11 L (12-20) BUN 10 (9-16) mg/dL Creatinine 0.70 (0.5-1.4) mg/dL Estim Creat Clear Calc 98.9 Estimated GFR > 60 Random Glucose 93 (60-115) mg/dL Calcium 8.6 D (8.4-10.2) mg/dL Total Bilirubin 0.1 (0.0-1.0) mg/dL Direct Bilirubin < 0.2 (0.0-0.5) mg/dL AST 19 (5-31) U/L ALT 22 (0-31) U/L Alkaline Phosphatase 43 (39-117) U/L Total Protein 6.4 L (6.5-8.0) g/dL Albumin 4.3 (3.5-5.0) g/dL Monoscreen Negative (Negative) Independent Interpretation I performed an independent interpretation of an: Plain X-Ray (normal ) Radiology Impression Discussion of test interpretation with radiology: I have reviewed the radiologist's reading. Independent Historian Clinical information obtained from an independent historian. History obtained from or confirmed by: Spouse External Record Review External record reviewed: Outpatient record Discharge Plan Discharge Clinical Impression: Shotty lymph nodes Patient Disposition: Home, Self-Care Instructions: Lymphadenopathy (ED) Additional Instructions: your chest xray is normal your labs are normal at this time I would advise you call your surgeon today and ask them to assess the lymph nodes - if they get larger you will need a biopsy monitor for any new symptoms or concerns return for any worsening symptoms or concerns also checked mono which was negative Prescriptions: No Action erythromycin 5 mg/gram (0.5 %) ointment 0.5 inch ophthalmic-Right QID Qty: 3.5 0RF ketorolac 0.5 % drops 1 drp ophthalmic (eye) QID PRN (Reason: pain) Qty: 5 0RF Stand Alone Forms: Work/School Release Print Language: [place]
--- NOTE | 2025-06-03 07:57 | PC.NURSE ---
Pt is anxious and upset, she has a known breast mass that she awaiting surgery for. Pt went to for pain, she feels they didn't really help her, here today for another opinion. ELIEL at bedside, at bedside doing an US. Awaiting further work up at this time.
[2025-06-03 08:18] VITALS: BP 102/42; PULSE 55; RESP 16; TEMP 36.8; O2SAT 100
[2025-06-03 08:23] LABS: MANUAL DIFF FLAG NO
[2025-06-03 08:25] LABS: Hematocrit 35.0 % (37.0-47.0); Hemoglobin 11.8 g/dl (12.0-16.0); Imm Gran Abs Auto 0.02 X10*3/uL (0.00-0.03); Imm Gran Pct Auto 0.3 % (0.0-0.4); Lymphocytes Absolute Auto 2.1 X10*3/uL (1.2-4.9); Mean Corpuscular HGB Conc 33.7 g/dl (31.0-35.0); Mean Corpuscular Hemoglobin 32.4 pg (27.0-33.0); Mean Corpuscular Volume 96.2 fL (80.0-98.0); NRBC Abs Auto 0.000 X10*3/uL (0.0-0.012); NRBC Pct Auto 0.0 /100WBC (0.0-0.2); Platelet Count 269 X10*3/uL (160-400); Red Blood Count 3.64 X10*6/uL (4.20-5.50); White Blood Count 7.6 X10*3/uL (4.8-10.8)
[2025-06-03 08:43] LABS: Alanine Aminotransferase 22 U/L (0-31); Albumin Level 4.3 g/dL (3.5-5.0); Alkaline Phosphatase 43 U/L (39-117); Anion Gap 11 (12-20); Aspartate Amino Transferase 19 U/L (5-31); Blood Urea Nitrogen 10 mg/dL (9-16); Calcium 8.6 mg/dL (8.4-10.2); Carbon Dioxide 25 mmol/L (22-29); Chloride 110 mmol/L (96-108); Creatinine Clr Calc Pharmacy 98.9; Estimated Glomerular Filt Rate > 60; Potassium 4.2 mmol/L (3.3-5.1); Sodium 142 mmol/L (135-145); Total Protein 6.4 g/dL (6.5-8.0)
[2025-06-03 09:29] VITALS: BP 102/42; PULSE 55; RESP 16; TEMP 36.8; O2SAT 100
== END 2025-06-03 09:30 | disposition home or self-care (01) ==
PROVIDERS: Emergency Provider Emergency Medicine
DX: R59.0 Localized enlarged lymph nodes (principal); Z79.899 Other long term (current) drug therapy
CPT/HCPCS: 36415; 71046; 80048; 80076; 85025; 86308; 99284

== ENCOUNTER → 2025-06-03 07:59 | Outpatient (BNV) | payer OTHER, SELFPAY | PROVIDERS: Emergency Provider Emergency Medicine; Visit Provider Radiology Diagnostic Radiology | DX: R05.9 Cough, unspecified (principal) | CPT/HCPCS: 71046 ==